=== PATIENT | male | born 1980 | race Caucasian/White ===

== ENCOUNTER 2016-09-20 14:23 | Emergency (ER) | payer BC, OTHER ==
[2016-09-20 14:57] VITALS: BP 131/82; PULSE 60; TEMP 98.3; BMI 25.0
[2016-09-20] MEDS ORDERED: IBUPROFEN 600 MG TABLET (FP) PO ONE ×2 (15:14→15:28)
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
== END 2016-09-20 15:33 | disposition home or self-care (01) ==
LOC: JERFT 14:23 → JER 14:23 → JERFT 15:33
DX: S16.1XXA Strain of muscle, fascia and tendon at neck level, initial encounter (principal); S56.811A Strain of other muscles, fascia and tendons at forearm level, right arm, initial encounter; V43.54XA Car driver injured in collision with van in traffic accident, initial encounter; Y92.414 Local residential or business street as the place of occurrence of the external cause; Y93.89 Activity, other specified; Y99.0 Civilian activity done for income or pay
CPT/HCPCS: 99281-25

== ENCOUNTER 2017-06-21 15:28 | Emergency (ER) | payer OTHER ==
[2017-06-21 15:32] VITALS: BP 135/90; PULSE 72; TEMP 98; BMI 25.0
[2017-06-21] MEDS ORDERED: IBUPROFEN 600 MG TABLET (FP) PO ONE ×2 (15:52→16:12)
[2017-06-21] MEDS ORDERED: DIPHTH,PERTUSS(ACELL),TET 0.5 ML DISP.SYRIN IM ONE (15:52)
[2017-06-21] MEDS ORDERED: IBUPROFEN 400 MG TABLET (FP) PO ONE (15:57)
--- NOTE | 2017-06-21 16:01 | PDOC ---
History of Present Illness - General Chief Complaint: Injury Stated Complaint: CUT FINGER Time Seen by Provider: 06/21/17 15:50 History Source: Patient Exam Limitations: No Limitations - History of Present Illness Initial Comments: 06/21/17 15:51 Was opening a seem on a piece of clothing when slipped and incised his right digit. Has full range of motion of finger, Occurred: reports: just prior to arrival Severity: reports: mild Pain Location: reports: upper extremity (finger ) Past History - Travel Traveled outside of the country in the last 30 days: No Close contact w/someone who was outside of country & ill: No - Past Medical History Allergies/Adverse Reactions: Allergies Allergy/AdvReac Type Severity Reaction Status Date / Time Cat/Feline Product Allergy Verified 06/21/17 15:32 Derivatives Home Medications: Ambulatory Orders NK [No Known Home Medication] 06/21/17 COPD: No - Immunization History Td Vaccination: Yes (2008) Immunization Up to Date: Yes (FLU UTD) - Suicide/Smoking/Psychosocial Hx Smoking Status: No Smoking History: Never smoked Have you smoked in the past 12 months: No Number of Cigarettes Smoked Daily: 0 Cigars Per Day: 0 Hx Alcohol Use: No Drug/Substance Use Hx: No Substance Use Type: None Review of Systems - Review of Systems Able to Perform ROS?: Yes Is the patient limited Hungarian proficient: Yes Constitutional: Yes: See HPI. No: Symptoms Reported HEENTM: No: Symptoms Reported Musculoskeletal: Yes: Symptoms Reported, See HPI Integumentary: Yes: Symptoms Reported, See HPI, Lesions (laceration to distal right thumb) Neurological: No: Symptoms reported All Other Systems: Reviewed and Negative *Physical Exam - Vital Signs Last Vital Signs Temp Pulse Resp BP Pulse Ox 98 F 72 18 135/90 99 06/21/17 15:30 06/21/17 15:30 06/21/17 15:30 06/21/17 15:30 06/21/17 15:30 - Physical Exam General Appearance: Yes: Nourished, Appropriately Dressed, Apparent Distress, Mild Distress HEENT: positive: DELFINA, Normal ENT Inspection, TMs Normal, Pharynx Normal Musculoskeletal: positive: Normal Inspection Extremity: positive: Normal Capillary Refill, Normal Range of Motion (strong flexion and extension against resistance, has 1 cm laceration to the radial aspect of right thumb without involving nail.). negative: Normal Inspection Integumentary: positive: Normal Color Neurologic: positive: hoop coiler II-XII NML intact, Fully Oriented, Alert, Normal Mood/ Affect, Normal Response, Motor Strength 5/5 Procedures - Laceration/Wound Repair Right Distal Finger Wound Length: to 2.5 cm Wound's Depth, Shape: superficial, linear Irrigated w/ Saline: Yes Betadine Prep: Yes Wound Repaired With: Sutures Suture Size/Type: 5:0 Number of Sutures: 4 Layer Closure: No Sterile Dressing Applied: Yes Splint Applied: Yes Progress Note - Progress Note Progress Note: Finger laceration repaired, tetanus/diphtheria/pertussis booster updated today *DC/Admit/Observation/Transfer Diagnosis at time of Disposition: Finger laceration Qualifiers: Encounter type: initial encounter Finger: thumb Damage to nail status: without damage Foreign body presence: without foreign body Laterality: right Qualified Code(s): S61.011A - Laceration without foreign body of right thumb without damage to nail, initial encounter - Discharge Dispostion Disposition: HOME Condition at time of disposition: Stable Admit: No - Referrals Referrals: Timoteo Haque MD [Primary Care Provider] - - Patient Instructions Printed Discharge Instructions: DI for Laceration Repair -- Finger Additional Instructions: Rest, elevate, avoid strenuous activity or heavy lifting until sutures are removed Leave dressing on for the next 24 hours, Then may remove dressing gently and wash area with soap and water. Reapply bacitracin ointment and dressing daily for the next 5 days On day #6 keep the wound protected and cover as needed until sutures are removed allowing wound to start to dry May use Tylenol or Motrin for pain relief Suture removal in : -10- 14 Days Tetanus/diphtheria/pertussis booster was updated today - Post Discharge Activity
== END 2017-06-21 16:13 | disposition home or self-care (01) ==
LOC: JERFT 15:28
PROC: 3E0234Z Introduction of Serum, Toxoid and Vaccine into Muscle, Percutaneous Approach (ICD-10-PCS; principal; 2017-06-21)
PROC: 0HQFXZZ Repair Right Hand Skin, External Approach (ICD-10-PCS; 2017-06-21)
DX: S61.011A Laceration without foreign body of right thumb without damage to nail, initial encounter (principal); W26.8XXA Contact with other sharp object(s), not elsewhere classified, initial encounter; Y93.89 Activity, other specified; Y92.89 Other specified places as the place of occurrence of the external cause; Y99.0 Civilian activity done for income or pay
CPT/HCPCS: 90715; 99281-25

== ENCOUNTER 2017-07-01 09:31 | Emergency (ER) | payer OTHER ==
[2017-07-01 09:53] VITALS: BP 126/52; PULSE 55; TEMP 98.3; BMI 25.8
--- NOTE | 2017-07-01 11:19 | PDOC ---
Suture Removal/Wound Check HPI - History of Present Illness Chief Complaint: Suture/Staple Removal(Here) Stated Complaint: STITCH REMOVAL Time Seen by Provider: 07/01/17 11:15 History Source: Yes: Patient Treated at: [facility] ED - Previous ED Treatment Type of procedure performed on last visit: Yes: Laceration Repair Antibiotics Prescribed: No Past History - Past Medical History Allergies/Adverse Reactions: Allergies Allergy/AdvReac Type Severity Reaction Status Date / Time Cat/Feline Product Allergy Verified 07/01/17 09:50 Derivatives Home Medications: Ambulatory Orders NK [No Known Home Medication] 06/21/17 CVA: No COPD: No - Immunization History Td Vaccination: Yes (2008) Immunization Up to Date: Yes (FLU UTD) - Suicide/Smoking/Psychosocial Hx Smoking Status: No Smoking History: Never smoked Have you smoked in the past 12 months: No Number of Cigarettes Smoked Daily: 0 Cigars Per Day: 0 Information on smoking cessation initiated: No Hx Alcohol Use: No Drug/Substance Use Hx: No Substance Use Type: None Suture Removal/Wound Check PE - Physical Exam Laceration/Wound Check Symptoms: reports: None Procedures - Additional Procedures Progress: 07/01/17 11:22 2 simple interupted sutures removed form right thumb CDI well healed nv intact FROM Medical Decision Making - Medical Decision Making 07/01/17 11:21 cc: suture removal 2 sutures to the right thumb intact CDI well healed and dry nv intact *DC/Admit/Observation/Transfer Diagnosis at time of Disposition: Visit for suture removal - Discharge Dispostion Disposition: HOME Condition at time of disposition: Good - Referrals Referrals: Timoteo Haque MD [Primary Care Provider] - - Patient Instructions Printed Discharge Instructions: DI for Suture Removal - Post Discharge Activity
== END 2017-07-01 11:47 | disposition home or self-care (01) ==
LOC: JERFT 09:31
DX: Z48.02 Encounter for removal of sutures (principal)
CPT/HCPCS: 99281-25

== ENCOUNTER 2018-06-25 21:10 | Emergency (ER) | payer OTHER ==
[2018-06-25 21:16] VITALS: BP 134/86; PULSE 74; TEMP 97.6; BMI 25.8
--- NOTE | 2018-06-25 21:16 | PDOC ---
Rapid Medical Evaluation Chief Complaint: Injury Medical Evaluation: Allergies Allergy/AdvReac Type Severity Reaction Status Date / Time Cat/Feline Product Allergy Verified 07/01/17 09:50 Derivatives 06/25/18 21:15 pt c/o: left 4th digit injury while on duty as [employer], Pt on brief exam: MCP-PIP joint edema with tenderness Pt ordered for: xray pt to proceed to the ED Discharge Disposition - Diagnosis Finger injury - Referrals Referrals: Timoteo Haque MD [Primary Care Provider] - - Patient Instructions - Post Discharge Activity
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
== END 2018-06-25 22:09 | disposition home or self-care (01) ==
LOC: JERFT 21:10
DX: S60.042A Contusion of left ring finger without damage to nail, initial encounter (principal); Y35.811A Legal intervention involving manhandling, law enforcement official injured, initial encounter; Y93.89 Activity, other specified; Y92.89 Other specified places as the place of occurrence of the external cause; Y99.0 Civilian activity done for income or pay
CPT/HCPCS: 73140-TC-LT-FY; 99281-25